=== PATIENT | female | born 1985 | race Caucasian/White ===

== ENCOUNTER 2017-10-17 17:05 | Emergency (ER) | payer OTHER ==
[~2017-10-17] VITALS: Ht 157.5 cm; Wt 72.6 kg
[~2017-10-17 17:05] MED LIST: BENTYL 20 MG TA20 M1 PO; IBUPROFEN 600600 M1 PO
[2017-10-17] MEDS ORDERED: MOBIC15 MG PO (18:40)
[2017-10-17] MEDS ORDERED: VALIUM5 MG PO (18:40)
== END 2017-10-17 19:17 | disposition home or self-care (01) ==
LOC: ER 17:05
DX: S16.1XXA Strain of muscle, fascia and tendon at neck level, initial encounter (principal); G43.909 Migraine, unspecified, not intractable, without status migrainosus; Z88.0 Allergy status to penicillin; X58.XXXA Exposure to other specified factors, initial encounter; Y93.89 Activity, other specified; Y92.89 Other specified places as the place of occurrence of the external cause; Y99.8 Other external cause status